=== PATIENT | female | born 1990 ===

== ENCOUNTER 2018-05-06 14:46 | Emergency (ER) | payer SELFPAY ==
[~2018-05-06] VITALS: Ht 165.1 cm; Wt 67.1 kg
[2018-05-06] MEDS ORDERED: ULTRAM50 MG PO (14:55)
[2018-05-06] MEDS ORDERED: AMOXICILLIN500 MG PO (14:55)
== END 2018-05-06 15:03 | disposition home or self-care (01) ==
LOC: ED 14:46
DX: K08.89 Other specified disorders of teeth and supporting structures (principal)